=== PATIENT | male | born 1960 | race African-American/Black ===

== ENCOUNTER 2016-06-02 08:29 | Emergency (ER) | payer OTHER ==
[2016-06-02 08:46] VITALS: BP 144/91
[2016-06-02] MEDS ORDERED: Albuterol 2.5 MG/3 ML NEB.SOL* (0.083%) INH ONE (09:12)
--- NOTE | 2016-06-02 09:15 | UC ---
Respiratory Complaint HPI - HPI Summary HPI Summary: hx of COPD, presents with fatique, PATINO, right sided ear and sinus pain bodyaches , chills and cough for 5 days. - History of Current Complaint Chief Complaint: UCRespiratory Stated Complaint: COUGH HEAD CONGESTION Time Seen by Provider: 06/02/16 09:07 Hx Obtained From: Patient Onset/Duration: Sudden Onset, Lasting Days Timing: Constant Severity Initially: Moderate Severity Currently: Severe Pain Intensity: 7 Pain Scale Used: 0-10 Numeric Character: Cough: Productive Aggravating Factors: Exertion, Deep Breaths, Recumbent Position Associated Signs And Symptoms: Positive: Fever, Chills, Wheezing, Nasal Congestion - Risk Factors Pulmonary Embolism Risk Factors: Negative - Allergies/Home Medications Allergies/Adverse Reactions: Allergies Allergy/AdvReac Type Severity Reaction Status Date / Time Aspirin Allergy See Comment Verified 06/02/16 08:35 Home Medications: Home Medications Albuterol HFA INHALER* [Ventolin HFA Inhaler*] 2 puff QID PRN 06/02/16 [History Confirmed 06/02/16] Allopurinol TAB* [Zyloprim TAB*] 1 tab QPM 06/02/16 [History Confirmed 06/02/16] Atenolol TAB* [Tenormin TAB* 50 MG] 1 tab QPM 06/02/16 [History Confirmed ] Budesonide/Formote 160/4.5(NF) [Symbicort 160/4.5 (NF)] 2 puff BID 06/02/16 [ History Confirmed 06/02/16] Febuxostat(NF) [Uloric(NF)] 1 tab QPM 06/02/16 [History Confirmed 06/02/16] Ibuprofen TAB* [Motrin TAB* 800 MG] 1 tab PRN 06/02/16 [History] LORazepam TAB(*) [Ativan TAB(*)] 2 mg PRN 06/02/16 [History] Lisinopril TAB* [Prinivil TAB 10 MG*] 20 mg QPM 06/02/16 [History Confirmed ] Omeprazole CAP* [Prilosec CAP* 20 MG] 40 mg QPM 06/02/16 [History Confirmed ] amLODIPine TAB* [Norvasc TAB*] 1 tab QPM 06/02/16 [History Confirmed 06/02/16] PMH/Surg Hx/FS Hx/Imm Hx Previously Healthy: Yes Endocrine History Of: Denies: Diabetes, Thyroid Disease Cardiovascular History Of: Reports: Hypertension - ON MEDS Denies: Cardiac Disorders, Pacemaker/ICD Respiratory History Of: Reports: COPD Denies: Asthma GI/ History Of: Denies: Ulcer, Renal Disease - Surgical History Surgical History: Yes Surgery Procedure, Year, and Place: Lymph node removed from chest; hernia repair. May 2016-2 cysts removed- 1 removed from chin and 1 removed from back - Family History Known Family History: Negative: Cardiac Disease, Hypertension - Social History Alcohol Use: None Substance Use Type: None Substance Use Comment - Amount & Last Used: Pt currently in substance abuse program- denies any substance use Smoking Status (MU): Current Some Day Smoker Type: Cigarettes Amount Used/How Often: 5-6 daily Have You Smoked in the Last Year: Yes - Immunization History Most Recent Influenza Vaccination: None Most Recent Tetanus Shot: 2012 Review of Systems Constitutional: Fever, Chills, Fatigue Skin: Negative Eyes: Negative ENT: Sore Throat, Ear Ache, Nasal Discharge Respiratory: Cough Cardiovascular: Negative Gastrointestinal: Negative Genitourinary: Negative Motor: Negative Neurovascular: Negative Musculoskeletal: Myalgia Neurological: Headache Psychological: Negative All Other Systems Reviewed And Are Negative: Yes Physical Exam Triage Information Reviewed: Yes Appearance: Well-Nourished, Ill-Appearing, Pain Distress Vital Signs: Initial Vital Signs Temp 99 F 06/02/16 08:37 Pulse 97 06/02/16 08:37 Resp 18 06/02/16 08:37 BP 144/91 06/02/16 08:37 Pulse Ox 99 06/02/16 08:37 Vital Signs Reviewed: Yes Eye Exam: Normal Eyes: Positive: Conjunctiva Clear ENT: Positive: Hearing grossly normal, Pharyngeal erythema, Nasal drainage, TM red Dental Exam: Normal Neck exam: Normal Neck: Positive: Supple, Nontender, No Lymphadenopathy Respiratory Exam: Normal Respiratory: Positive: Chest non-tender, No respiratory distress, No accessory muscle use, Wheezing, Inspiration Cardiovascular Exam: Normal Cardiovascular: Positive: RRR, No Murmur, Pulses Normal Abdominal Exam: Normal Abdomen Description: Positive: Nontender, No Organomegaly, Soft Bowel Sounds: Positive: Present Musculoskeletal Exam: Normal Musculoskeletal: Positive: Strength Intact, ROM Intact, No Edema Neurological Exam: Normal Neurological: Positive: Alert, Muscle Tone Normal Psychological Exam: Normal Skin Exam: Normal UC Diagnostic Evaluation - Laboratory O2 Sat by Pulse Oximetry: 99 Respiratory Course/Dx - Course Course Of Treatment: hx obtained, exam performed, meds reviewed, rapid flu obtained, albuterol neb administered. - Differential Dx/Diagnosis Differential Diagnosis/HQI/PQRI: Bronchitis, Influenza, Laryngitis, MRSA, Sinusitis Provider Diagnoses: sinusitis, fever, copd Discharge - Discharge Plan Condition: Stable Disposition: HOME Prescriptions: Amoxicillin/Clavulanate TAB* [Augmentin TAB 875*] 875 mg PO BID #20 tab predniSONE TAB* [Deltasone TAB*] 40 mg PO DAILY #10 tab Patient Education Materials: Sinusitis (ED) Additional Instructions: take the medication as prescribed. Follow up with any increase in respiratory difficulty.
== END 2016-06-02 10:08 | disposition home or self-care (01) ==
LOC: UCEAST 08:29
DX: J32.9 Chronic sinusitis, unspecified (principal); R50.9 Fever, unspecified; J44.9 Chronic obstructive pulmonary disease, unspecified; I10 Essential (primary) hypertension; Z88.6 Allergy status to analgesic agent; Z72.0 Tobacco use
CPT/HCPCS: 87502; 99212; G0463

== ENCOUNTER 2017-04-09 10:25 | Inpatient (IN) | payer OTHER ==
--- NOTE | 2017-03-31 10:26 | HP ---
HISTORY AND PHYSICAL: DATE OF SURGERY: 04/09/17 DATE OF OFFICE VISIT: 03/27/17 SURGEON: Isha Rojas MD * (DICTATED BY MATTHEW DE SANTIAGO) PROCEDURE: Right total hip arthroplasty. CHIEF COMPLAINT: Right hip pain. HISTORY OF PRESENT ILLNESS: Mr. Humphries is a 56-year-old gentleman with complaints of right hip pain secondary to end-stage osteoarthritis. He has failed conservative management and elected to proceed with a right total hip arthroplasty. PAST MEDICAL HISTORY: COPD, hypertension, GERD, and chronic neck and low back pain. PAST SURGICAL HISTORY: Left inguinal hernia repair and a lymph node removal from his chest. CURRENT MEDICATIONS: 1. Oxycodone 10 mg 1 tablet every 12 hours as needed. 2. Zonisamide 25 mg one to four capsules q.h.s. 3. Tylenol Extra Strength. 4. Verapamil 240 mg every day. 5. Ventolin inhaler. 6. Uloric 40 mg daily. 7. Omeprazole 40 mg daily. 8. Allopurinol 100 mg daily. 9. Symbicort. 10. Lisinopril 20 mg daily. ALLERGIES: ASPIRIN, causing nosebleeds. FAMILY HISTORY: Seizures. SOCIAL HISTORY: He is a 56-year-old gentleman who lives with his . He smokes approximately a half a pack a day. He denies use of drugs, uses occasional alcohol. REVIEW OF SYSTEMS: A complete 14-point review of systems was reviewed with the patient. It is positive for GERD and COPD. He denies history of DVT, PE, hepatitis C, HIV, MRSA or anesthesia problems. PHYSICAL EXAMINATION GENERAL: Well-developed, well-nourished, in no acute distress. VITAL SIGNS: He stands 5 feet 9 inches tall, he is 150 pounds, blood pressure 124/84, heart rate 96. HEENT: Normocephalic, atraumatic. NECK: Supple. No palpable lymph nodes. PULMONARY: The lungs are clear to auscultation bilaterally. CARDIO: Regular rate and rhythm. ABDOMEN: Soft, nontender, nondistended. NEUROLOGIC: Alert and oriented x3. Cranial nerves II through XII are intact. MUSCULOSKELETAL: Right lower extremity, skin is intact. There are no open wounds or abrasions. Decreased internal and external rotation of the right hip. Walks with an antalgic type gait; 2+ dorsalis pedis pulses. He has intact sensation in the lower extremities. Muscle group strengths are intact 5/ 5. ASSESSMENT AND PLAN: Mr. Humphries is a 56-year-old gentleman with complaints of right hip pain secondary to end-stage osteoarthritis. He has failed conservative management and elected to proceed with a right total hip arthroplasty, which is scheduled for 04/09/[address] Rojas discussed the risks and benefits of the surgery at today's visit and all of his questions were answered. He will follow up with Dr. Rojas 2 weeks after the surgery. MATTHEW DE SANTIAGO [id number]/[facility] #: [id number] MIGUEL
[~2017-04-09 10:25] MED LIST: DiMENhydriNATE IV* 50 MG/ML VIAL IV PUSH PRN; Famotidine IV* 10 MG/ML 2 ML (20 mg) IV ONE; Naloxone* 0.4 MG/ML 1 ML VIAL IV PRN; PROCHLORPERAZINE INJ 5 MG/ML 2 ML VIAL IV PRN; Scopolamine 1.5 mg* PATCH TRANSDERM PRN
[2017-04-09] MEDS ORDERED: Famotidine IV* 10 MG/ML 2 ML (20 mg) ONE (10:29)
[2017-04-09] MEDS ORDERED: Buffered Lidocaine 0.9% SYRIN* 5 ML/SYR SYRINGE ONE (10:30)
[2017-04-09] MEDS ORDERED: ceFAZolin 2 GM PREMIX (*) 2 GM/50 ML BAG IVPB ONE (10:30)
--- OUTSIDE RECORDS SUMMARY | 2017-04-09 10:31 | XMS REPORT ---
:1960 External Reference #:[id number] Author Organization [facility] Address [address] [address] Phone [phone] Care Team Providers Name Role Phone Cory Alvarez MD Primary Care Physician Unavailable Payers Type Date Identification Numbers Payment Provider Subscriber Medicaid Effective: 2014 Policy Number: [id number] Medicaid Silvino Humphries Expires: 2015 Group Name: 1 1 [address] PayID: [id number] [place] [address] Commercial Expires: 2014 Policy Number: Total Care/Cristina FHP Silvino Humphries [id number] PayID: [id number] [address] [address] [place] [address] Commercial Effective: 2015 Policy Number: Total Care/Cristina MNG Silvino Humphries [id number] [facility] Group Name: [id number] [address] [address] PayID: [id number] [place] [address] Problems Date Description Provider Status Onset: 06/22/2014 Neck pain Kacie Tineo M.D. Active Onset: 01/12/2015 Lumbar spondylosis Isidro Chaudhry M.D. Active Onset: 09/27/2015 Carpal tunnel syndrome of right Cory Alvarez M.D. Active wrist Onset: 09/27/2015 Essential hypertension Cory Alvarez M.D. Active Onset: 09/27/2015 Gout Cory Alavrez M.D. Active Onset: 09/27/2015 Chronic obstructive lung disease Cory Alvarez M.D. Active Onset: 03/21/2016 Gastroesophageal reflux disease Cory Alvarez M.D. Active Onset: 08/19/2016 Migraine without aura, not Cory Alvarez M.D. Active refractory Onset: 12/19/2016 Strain of muscle, fascia and tendon Grady Ryan M.D. Active of lower back, subs Onset: 01/08/2017 Polyneuropathy Cory Alvarez M.D. Active Onset: 01/12/2015 Cervical spondylosis without Isidro Chaudhry M.D. Resolved myelopathy Resolved: 05/20/2016 Onset: 01/12/2015 Localized, primary osteoarthritis Isidro Chaudhry M.D. Resolved of the pelvic region and thigh Resolved: 05/20/2016 Onset: 09/27/2015 Thoracic and lumbosacral neuritis Cory Alvarez M.D. Resolved Resolved: 05/20/2016 Onset: 09/27/2015 Screening for malignant neoplasm of Cory Alvarez M.D. Resolved prostate Resolved: 05/20/2016 Onset: 03/12/2016 Low back pain Grady Ryan M.D. Resolved Resolved: 05/20/2016 Onset: 03/21/2016 Shoulder joint pain Cory Alvarez M.D. Resolved Resolved: 05/20/2016 Onset: 05/12/2016 Displacement of lumbar intervertebral Grady Ryan M.D. Resolved disc without myelopathy Resolved: 05/20/2016 Onset: 05/20/2016 Brachial neuritis Cory Alvarez M.D. 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 ambulation . Raised Toilet 03/31 Active Misc use as Z01.818 directed Ranjit Alvarez Oxycodone HCL 02/12 Active Tablets 10mg 30tab 1 tab 12h M25.551 s as needed Ranjit Alvarez Zonisamide 02/05 Active Capsules 25mg 120ca 1-4 caps G44.52 Cristy M. ps by mouth Stackman, every M.D. night as directed Acetaminophen 10/28 Active Tablets 500mg 180ta 2 tab 3 G43.009 Extra bs times Pachika daily as , Janae.DPromise needed Verapamil HCL ER 10/28 Active Caps ER 240mg 30cap Take One 24HR s Capsule By Kim Hoffman M.D. Every Day Ventolin HFA 04/23 Active Aerosol 108(90Bas 16gm 2 puffs by e) mouth four Jiaikara mcg/Act times a MPromiseDPromise day as needed Uloric 04/11 Active Tablets 40mg 90tab 1 by mouth s every day Ranjit Alvarez Omeprazole 03/[address] 40mg 30cap Take One K21.9 s Capsule By Kim Hoffman M.D. Every Morning One Hour Before Eating Allopurinol 02/25 Active Tablets 100mg 30tab Take One s Tablet By Kim Hoffman M.D. Every Day Symbicort 09/26 Active Aerosol 160-4.5mc 30.6g 2 puff g/Act m twice a Kim sanford M.D. Lisinopril Active Tablets 20mg 30tab Take One I10 /0000 s Tablet By Kim Hoffman M.D. Every Day Verapamil HCL ER 10/09 Hx Caps ER 120mg 30cap 1 by mouth G43.009 24HR s every day Kim Herndon M.D. 10/28 Amitriptyline HCL 09/04 Hx Tablets 25mg 30tab 1 by mouth G43.009 s every Kim - night at Ranjit 10/09 bedtime Sumatriptan 08/19 Hx Tablets 100mg 9tabs use at G43.009 [place] Succinate onset of Pachikara - head , M.D. 12/02 ache,august repeat after 2h as needed Metoprolol 08/19 Hx Tablets 25mg 60tab 1 by mouth G43.009 [place] Tartrate /2016 s twice a Pachikara - day , M.D. 10/09 Amoxicillin/Clavu 08/19 Hx Tablets 875-125mg 20tab 1 by mouth J06.9 [place] lanate Potassium /2016 s twice a Pachikara - day , M.D. 09/04 Prednisone 08/19 Hx Tablets 10mg 30tab 5tabx J06.9 Cory /2016 s 2days,4 Pachikara - [id number] , M.D. 09/04 [id number] /2017 ,[id number] s,1tabx . Loratadine 07/14 Hx Tablets 10mg 14tab 1 by mouth J01.90 Sherry s every day Gaby, - as needed M.D. 02/12 for nasal /2017 congestion Ativan 03/12 Hx Tablets 2mg 2tabs take one M54.5 tablet by Kim - mouth 30 , M.D. before mri, may repeat at the time of mri. Atenolol 11/20 Hx Tablets 50mg 30tab 1 by mouth s every day Kim - , M.D. 09/04 Proair HFA 11/12 Hx Aerosol 108(90Bas 8.5un 2 puffs by e) its mouth Pachikara - mcg/Act every 4 , M.D. /18 hours needed Vistaril 10/16 Hx Capsules 50mg 4caps 2 tabs po Jung /2015 30 minutes Wolof, - before CT, HYPERBARIC TECH 11/13 repeat in 30 minutes in ineffectiv e Wrist Brace 09/26 Hx Misc 1unit apply as G56.01 Cory Deluxe/Right/Smal s directed Pachika l/Medium - , M.D. 03/26 Hydrochlorothiazi Hx Tablets 12.5mg 90tab 1 by mouth I10 [place] de /0000 s every day Kim (pt Ranjit dorsey taking) Atenolol 00 Hx Tablets 25mg 1 qd I10 Unknown /0000 - 11/20 Aspirin - 00 Hx Tablets 81mg 1 by mouth Unknown Currently Not /0000 every day Taking - 01/12 Cyclobenzaprine Hx Tablets 10mg one by Unknown HCL /0000 mouth - every day 09/26 Fluticasone Hx Suspension 50mcg/Act 2 sprays Unknown Propionate /0000 each - nostril 09/26 Ibuprofen Hx Tablets 800mg 90tab 1 tab by M47.812 Betty /0000 s mouth Varn, - every 8 N.P. 10/28 hours needed Diphenhydramine Hx Capsules 25mg take 1 - 2 Unknown HCL /0000 tablets by - mouth at 09/26 bedtime needed. Ipratropium Hx Solution 0.06% 2 sprays Unknown [place] /0000 in each - nostril 09/26- times/day for relief of cold symptoms (limit 4 days) Ketoconazole Hx Cream 2% apply thin Unknown /0000 film twice - daily 09/26 Proair HFA Hx Aerosol 108(90Bas 2 puffs by J44.9 Unknown /0000 e) mouth - mcg/Act every 4 08/09 hours needed Prednisone 00/ Hx Tablets 10mg 2 qd Unknown /0000 - 09/26 Uloric Hx Tablets 40mg 90tab 1 by mouth M10.9 [place] /0000 s every day Kim Herndon M.D. 02/25 Amlodipine 00 Hx Tablets 5mg 30tab Take One I10 [place] Besylate /0000 s Tablet By Kim - Ranjit Hoffman 10/28 Every /2016 Immunizations CPT Code Status Date Vaccine Reaction Lot # [id number] Given 09/04/2016 Pneumonia Vaccine no immediate reaction, pt [id number] tolerated injection - pw Vital Signs Date Vital Result Comment 03/31/2017 Weight 149.50 lb Heart Rate 92 /min BP Systolic Sitting 132 mmHg BP Diastolic Sitting 80 mmHg Body Temperature 97.7 F O2 % BldC Oximetry 98 % 03/27/2017 Height 69 inches 5'9" Weight 150.00 lb Heart Rate 96 /min BP Systolic 124 mmHg BP Diastolic 84 mmHg Body Temperature 98.3 F BMI (Body Mass Index) 22.1 kg/m2 02/23/2017 Height 69 inches 5'9" Weight 155.00 lb per pt Heart Rate 90 /min reg BP Systolic Sitting 130 mmHg Lue, reg cuff BP Diastolic Sitting 96 mmHg Lue, reg cuff Respiratory Rate 16 /min BMI (Body Mass Index) 22.9 kg/m2 02/12/2017 Weight 153.00 lb Heart Rate 93 /min BP Systolic Sitting 150 mmHg BP Diastolic Sitting 90 mmHg Body Temperature 97.2 F O2 % BldC Oximetry 97 % 02/05/2017 Height 69 inches 5'9" Weight 150.00 lb Heart Rate 108 /min BP Systolic 122 mmHg BP Diastolic 96 mmHg Respiratory Rate 16 /min BMI (Body Mass Index) 22.1 kg/m2 01/08/2017 Height 69 inches 5'9" Weight 150.25 lb Heart Rate 94 /min BP Systolic 124 mmHg BP Diastolic 78 mmHg Body Temperature 98.3 F O2 % BldC Oximetry 97 % BMI (Body Mass Index) 22.2 kg/m2 12/19/2016 Height 69 inches 5'9" Weight 155.00 lb Heart Rate 90 /min BP Systolic Sitting 138 mmHg BP Diastolic Sitting 88 mmHg Pain Level 5 BMI (Body Mass Index) 22.9 kg/m2 12/18/2016 Height 69 inches 5'9" Weight 155.38 lb Heart Rate 101 /min BP Systolic 150 mmHg BP Diastolic 88 mmHg Body Temperature 97.7 F O2 % BldC Oximetry 98 % BMI (Body Mass Index) 22.9 kg/m2 12/02/2016 Height 69 inches 5'9" Weight 155.12 lb Heart Rate 91 /min BP Systolic 130 mmHg BP Diastolic 78 mmHg Body Temperature 97.5 F O2 % BldC Oximetry 98 % BMI (Body Mass Index) 22.9 kg/m2 10/28/2016 Height 69 inches 5'9" Weight 153.25 lb Heart Rate 92 /min BP Systolic 146 mmHg BP Diastolic 88 mmHg Body Temperature 97.2 F O2 % BldC Oximetry 96 % BMI (Body Mass Index) 22.6 kg/m2 10/09/2016 Weight 150.38 lb Heart Rate 89 /min BP Systolic 138 mmHg BP Diastolic 76 mmHg Body Temperature 97.9 F O2 % BldC Oximetry 98 % 09/10/2016 Weight 151.00 lb Heart Rate 62 /min BP Systolic Sitting 132 mmHg BP Diastolic Sitting 90 mmHg Pain Level 8 L ribcage O2 % BldC Oximetry 99 % 09/04/2016 Weight 148.50 lb Heart Rate 68 /min BP Systolic 134 mmHg BP Diastolic 76 mmHg Body Temperature 96.7 F O2 % BldC Oximetry 99 % 08/19/2016 Weight 151.00 lb Heart Rate 68 /min BP Systolic Sitting 142 mmHg BP Diastolic Sitting 90 mmHg Body Temperature 97.2 F O2 % BldC Oximetry 99 % 07/14/2016 Weight 147.00 lb Heart Rate 72 /min BP Systolic Sitting 132 mmHg BP Diastolic Sitting 84 mmHg Respiratory Rate 15 /min Body Temperature 98.3 F O2 % BldC Oximetry 98 % 07/11/2016 Weight 145.25 lb Heart Rate 85 /min BP Systolic Sitting 142 mmHg BP Diastolic Sitting 96 mmHg Body Temperature 98.7 F O2 % BldC Oximetry 97 % 05/20/2016 Weight 147.25 lb Heart Rate 90 /min BP Systolic Sitting 134 mmHg BP Diastolic Sitting 78 mmHg Body Temperature 97.6 F O2 % BldC Oximetry 96 % 05/12/2016 Height 69 inches 5'9" Weight 153.00 lb Heart Rate 72 /min BP Systolic Sitting 160 mmHg BP Diastolic Sitting 90 mmHg Pain Level 6 BMI (Body Mass Index) 22.6 kg/m2 05/06/2016 Heart Rate 72 /min BP Systolic 130 mmHg BP Diastolic 84 mmHg Respiratory Rate 18 /min Body Temperature 98.0 F 04/16/2016 Height 69 inches 5'9" Weight 153.00 lb Heart Rate 84 /min BP Systolic 130 mmHg BP Diastolic 84 mmHg Respiratory Rate 18 /min Body Temperature 98.6 F BMI (Body Mass Index) 22.6 kg/m2 03/21/2016 Weight 149.50 lb Heart Rate 100 /min BP Systolic Sitting 160 mmHg BP Diastolic Sitting 100 mmHg Body Temperature 97.5 F O2 % BldC Oximetry 98 % 03/12/2016 Height 69 inches 5'9" Weight 160.00 lb Heart Rate 76 /min BP Systolic Sitting 160 mmHg BP Diastolic Sitting 98 mmHg Pain Level 9 BMI (Body Mass Index) 23.6 kg/m2 02/22/2016 Weight 154.50 lb Heart Rate 76 /min BP Systolic Sitting 130 mmHg BP Diastolic Sitting 88 mmHg Body Temperature 97.4 F O2 % BldC Oximetry 98 % 11/14/2015 Height 68.25 inches 5'8.25" Weight 148.38 lb Heart Rate 96 /min BP Systolic Sitting 146 mmHg BP Diastolic Sitting 94 mmHg Body Temperature 97.7 F O2 % BldC Oximetry 96 % BMI (Body Mass Index) 22.4 kg/m2 10/19/2015 Height 68.25 inches 5'8.25" Weight 153.00 lb Heart Rate 87 /min BP Systolic 130 mmHg BP Diastolic 78 mmHg BMI (Body Mass Index) 23.1 kg/m2 10/15/2015 Height 68 inches 5'8" Weight 150.50 lb Heart Rate 88 /min BP Systolic Sitting 124 mmHg BP Diastolic Sitting 80 mmHg Body Temperature 97.4 F O2 % BldC Oximetry 98 % BMI (Body Mass Index) 22.9 kg/m2 09/27/2015 Height 68 inches 5'8" Weight 149.00 lb Heart Rate 86 /min BP Systolic Sitting 156 mmHg BP Diastolic Sitting 104 mmHg Body Temperature 97.9 F O2 % BldC Oximetry 99 % BMI (Body Mass Index) 22.7 kg/m2 01/12/2015 Height 69 inches 5'9" Weight 163.00 lb Heart Rate 76 /min BP Systolic Sitting 122 mmHg BP Diastolic Sitting 80 mmHg Pain Level 7 back BMI (Body Mass Index) 24.1 kg/m2 12/28/2014 Height 69 inches 5'9" Weight 167.00 lb Pain Level 6 BMI (Body Mass Index) 24.7 kg/m2 11/15/2014 Height 69 inches 5'9" Weight 167.00 lb Heart Rate 80 /min BP Systolic 148 mmHg BP Diastolic 90 mmHg BMI (Body Mass Index) 24.7 kg/m2 08/17/2014 Height 69 inches 5'9" Weight 166.00 lb Heart Rate 93 /min BP Systolic 102 mmHg BP Diastolic 71 mmHg Pain Level 8 BMI (Body Mass Index) 24.5 kg/m2 07/17/2014 Height 69 inches 5'9" Weight 173.00 lb Heart Rate 72 /min BP Systolic 116 mmHg BP Diastolic 83 mmHg BMI (Body Mass Index) 25.5 kg/m2 06/22/2014 Height 69 inches 5'9" Weight 174.00 lb Heart Rate 80 /min BP Systolic Sitting 138 mmHg BP Diastolic Sitting 84 mmHg Respiratory Rate 16 /min BMI (Body Mass Index) 25.7 kg/m2 05/19/2014 Height 69 inches 5'9" Weight 172.00 lb Heart Rate 76 /min BP Systolic Sitting 122 mmHg BP Diastolic Sitting 80 mmHg Pain Level 6 back/neck/l shoulder BMI (Body Mass Index) 25.4 kg/m2 Results Test Date Test Result H/L Range Note CBC No Diff 03/27/2017 White Blood Count 4.3 10^3/uL 3.5-10.8 Red Blood Count 4.82 10^6/uL 4.0-5.4 Hemoglobin 14.8 g/dL 14.0-18.0 Hematocrit 43 % 42-52 Mean Corpuscular Volume 90 fL 80-94 Mean Corpuscular Hemoglobin 31 pg 27-31 Mean Corpuscular HGB Conc 34 g/dL 31-36 Red Cell Distribution Width 14 % 10.5-15 Platelet Count 258 10^3/uL 150-450 Mean Platelet Volume 7 um3 Low 7.4-10.4 Type & Screen 03/27/2017 Patient Blood Type O Positive Antibody Screen NEGATIVE Inr/Protime 03/27/2017 Inr 0.99 0.77-1.02 1 Laboratory test finding 03/27/2017 Partial Thrombo Time 42.9 seconds High 26.0-36.3 PTT Comp Metabolic Panel 03/27/2017 Sodium 132 mmol/L Low 133-145 Potassium 4.5 mmol/L 3.5-5.0 Chloride 96 mmol/L Low 101-111 Co2 Carbon Dioxide 26 mmol/L 22-32 Anion Gap 10 mmol/L 2-11 Glucose 79 mg/dL 70-100 Blood Urea Nitrogen 8 mg/dL 6-24 Creatinine 0.70 mg/dL 0.67-1.17 BUN/Creatinine Ratio 11.4 8-20 Calcium 9.8 mg/dL 8.6-10.3 Total Protein 7.7 g/dL 6.4-8.9 Albumin 4.0 g/dL 3.2-5.2 Globulin 3.7 g/dL 2-4 Albumin/Globulin Ratio 1.1 1-3 Total Bilirubin 0.50 mg/dL 0.2-1.0 Alkaline Phosphatase 118 U/L High 34-104 Alt 11 U/L 7-52 Ast 20 U/L 13-39 Egfr Non- 116.7 >60 Egfr 150.0 >60 2 Laboratory test finding 03/27/2017 TSH (Thyroid Stim Horm) 1.49 mcIU/mL 0.34-5.60 Comp Metabolic Panel 02/03/2017 Sodium 133 mmol/L 133-145 Potassium 4.4 mmol/L 3.5-5.0 Chloride 99 mmol/L Low 101-111 Co2 Carbon Dioxide 26 mmol/L 22-32 Anion Gap 8 mmol/L 2-11 Glucose 105 mg/dL High 70-100 Blood Urea Nitrogen 8 mg/dL 6-24 Creatinine 0.85 mg/dL 0.67-1.17 BUN/Creatinine Ratio 9.4 8-20 Calcium 10.0 mg/dL 8.6-10.3 Total Protein 8.0 g/dL 6.4-8.9 Albumin 4.3 g/dL 3.2-5.2 Globulin 3.7 g/dL 2-4 Albumin/Globulin Ratio 1.2 1-3 Total Bilirubin 0.40 mg/dL 0.2-1.0 Alkaline Phosphatase 130 U/L High 34-104 Alt 12 U/L 7-52 Ast 23 U/L 13-39 Egfr Non- 93.2 >60 Egfr 119.9 >60 3 CBC Auto Diff 02/03/2017 White Blood Count 5.6 10^3/uL 3.5-10.8 Red Blood Count 5.02 10^6/uL 4.0-5.4 Hemoglobin 15.6 g/dL 14.0-18.0 Hematocrit 46 % 42-52 Mean Corpuscular Volume 91 fL 80-94 Mean Corpuscular Hemoglobin 31 pg 27-31 Mean Corpuscular HGB Conc 34 g/dL 31-36 Red Cell Distribution Width 14 % 10.5-15 Platelet Count 259 10^3/uL 150-450 Mean Platelet Volume 8 um3 7.4-10.4 Abs Neutrophils 3.0 10^3/uL 1.5-7.7 Abs Lymphocytes 1.5 10^3/uL 1.0-4.8 Abs Monocytes 0.9 10^3/uL High 0-0.8 Abs Eosinophils 0.1 10^3/uL 0-0.6 Abs Basophils 0.1 10^3/uL 0-0.2 Abs Nucleated RBC 0 10^3/uL Granulocyte % 52.8 % 38-83 Lymphocyte % 27.7 % 25-47 Monocyte % 16.9 % High 1-9 Eosinophil % 1.2 % 0-6 Basophil % 1.4 % 0-2 Nucleated Red Blood Cells % 0.1 Laboratory test finding 02/03/2017 TSH (Thyroid Stim 0.92 mcIU/mL 0.34- 5.60 Horm) Vitamin B12 And Folate 01/06/2017 Vitamin B12 346 pg/mL 180-914 4 Serum Folic Acid (Folate) 15.62 ng/mL >3.99 Rapid Influenza A & B 06/02/2016 Influenza A Molecular NEGATIVE Negative 5 Molecular Influenza B Molecular NEGATIVE Negative Basic Metabolic Panel 11/20/2015 Sodium 130 mmol/L Low 133-145 Potassium 4.2 mmol/L 3.5-5.0 Chloride 93 mmol/L Low 101-111 Co2 Carbon Dioxide 27 mmol/L 22-32 Anion Gap 10 mmol/L 2-11 Glucose 86 mg/dL 70-100 Blood Urea Nitrogen 9 mg/dL 6-24 Creatinine 0.85 mg/dL 0.67-1.17 BUN/Creatinine Ratio 10.6 8-20 Calcium 10.0 mg/dL 8.6-10.3 Egfr Non- 93.6 >60 Egfr 120.4 >60 6 Laboratory test finding 11/02/2015 Uric Acid 4.4 mg/dL 4.4-7.6 Comp Metabolic Panel 11/02/2015 Sodium 129 mmol/L Low 133-145 Potassium 4.5 mmol/L 3.5-5.0 Chloride 97 mmol/L Low 101-111 Co2 Carbon Dioxide 23 mmol/L 22-32 Anion Gap 9 mmol/L 2-11 Glucose 73 mg/dL 70-100 Blood Urea Nitrogen 6 mg/dL 6-24 Creatinine 0.74 mg/dL 0.67-1.17 BUN/Creatinine Ratio 8.1 8-20 Calcium 9.1 mg/dL 8.6-10.3 Total Protein 7.6 g/dL 6.4-8.9 Albumin 4.2 g/dL 3.2-5.2 Globulin 3.4 g/dL 2-4 Albumin/Globulin Ratio 1.2 1-3 Total Bilirubin 0.30 mg/dL 0.2-1.0 Alkaline Phosphatase 121 U/L High 34-104 Alt 31 U/L 7-52 Ast 44 U/L High 13-39 Egfr Non- 109.8 >60 Egfr 141.2 >60 7 Lipid Profile (Trig/Chol/HDL) 11/02/2015 Triglycerides 58 mg/dL 8 Cholesterol 173 mg/dL 9 HDL Cholesterol 67.3 mg/dL 10 LDL Cholesterol 94 mg/dL 11 Laboratory test finding 11/02/2015 PSA Screening 1.322 ng/mL 0-4.000 12 Stool For Blood 10/26/2015 Miscellaneous Lab negative X 3 1 Please note the change in INR reference range effective 17. 2 Because ethnic data is not always readily available, this report includes an eGFR for both -Americans and non- Americans. The National Kidney Disease Education Program (NKDEP) does not endorse the use of the MDRD equation for patients that are not between the ages of 18 and 70, are , have extremes of body size, muscle mass, or nutritional status, or are non- or non-. According to the National Kidney Foundation, irrespective of diagnosis, the stage of the disease is based on the level of kidney function: Stage Description GFR(mL/min/1.73 m(2)) 1 Kidney damage with normal or decreased GFR 90 2 Kidney damage with mild decrease in GFR 60-89 3 Moderate decrease in GFR 30-59 4 Severe decrease in GFR 15-29 5 Kidney failure <15 (or dialysis) 3 Because ethnic data is not always readily available, this report includes an eGFR for both -Americans and non- Americans. The National Kidney Disease Education Program (NKDEP) does not endorse the use of the MDRD equation for patients that are not between the ages of 18 and 70, are , have extremes of body size, muscle mass, or nutritional status, or are non- or non-. According to the National Kidney Foundation, irrespective of diagnosis, the stage of the disease is based on the level of kidney function: Stage Description GFR(mL/min/1.73 m(2)) 1 Kidney damage with normal or decreased GFR 90 2 Kidney damage with mild decrease in GFR 60-89 3 Moderate decrease in GFR 30-59 4 Severe decrease in GFR 15-29 5 Kidney failure <15 (or dialysis) 4 Normal Range 180 to 914 Indeterminate Range 145 to 180 Deficient Range <145 5 Harbour Master: [id number] BLAKE BOYER 6 Because ethnic data is not always readily available, this report includes an eGFR for both -Americans and non- Americans. The National Kidney Disease Education Program (NKDEP) does not endorse the use of the MDRD equation for patients that are not between the ages of 18 and 70, are , have extremes of body size, muscle mass, or nutritional status, or are non- or non-. According to the National Kidney Foundation, irrespective of diagnosis, the stage of the disease is based on the level of kidney function: Stage Description GFR(mL/min/1.73 m(2)) 1 Kidney damage with normal or decreased GFR 90 2 Kidney damage with mild decrease in GFR 60-89 3 Moderate decrease in GFR 30-59 4 Severe decrease in GFR 15-29 5 Kidney failure <15 (or dialysis) 7 Because ethnic data is not always readily available, this report includes an eGFR for both -Americans and non- Americans. The National Kidney Disease Education Program (NKDEP) does not endorse the use of the MDRD equation for patients that are not between the ages of 18 and 70, are , have extremes of body size, muscle mass, or nutritional status, or are non- or non-. According to the National Kidney Foundation, irrespective of diagnosis, the stage of the disease is based on the level of kidney function: Stage Description GFR(mL/min/1.73 m(2)) 1 Kidney damage with normal or decreased GFR 90 2 Kidney damage with mild decrease in GFR 60-89 3 Moderate decrease in GFR 30-59 4 Severe decrease in GFR 15-29 5 Kidney failure <15 (or dialysis) 8 Desirable <150 Borderline high 150-199 High 200-499 Very High >500 9 Desirable <200 Borderline high 200-239 High >239 10 Low <40 Desirable: 40-60 High: >60 11 Desirable: <100 mg/dL Near Optimal: 100-129 mg/dL Borderline High: 130-159 mg/dL High: 160-189 mg/dL Very High: >189 mg/dL 12 Serum levels of PSA measured using the newScale DXI Hybritech immunoassay should not be interpreted as absolute evidence of the presence or absence of disease. The PSA value should be used in conjunction with other pertinent clinical diagnostic procedures. The values obtained with different assay methods or kits cannot be used interchangeably. Procedures Date CPT Code Description Status 02/03/2017 39617 Nerve Conduction 07-08 Studies Completed 02/03/2017 25794 Needle Electromyography Each Extremity W/Related Completed Paraspinal Areas 05/06/2016 86606 Excision Benign Lesion Incl Diameter 1.1 - 2.0 CM Completed Scalp,Neck,Hand 05/06/2016 11202 Excise Benign Lesion 2.1-3CM Trunk/Arm/Leg Completed 11/20/2015 22503 Plethysmography Determination Lung Volumes & Per Completed Airway Resist 11/20/2015 05546 Pulmonary Function><Bronchodil Completed 06/22/2014 68446 Nerve Conduction 09-10 Studies Completed 06/22/2014 38273 Needle Electromyography Complete, Five Or More Muscles Completed Studied Encounters Type Date Location Provider CPT E/M Dx Office Visit 02/23/2017 Orthopedic Services Isha Rojas M.D. 26366 M25.551 10:45a Of [place].M.Jon[place] M16.11 Office Visit 02/12/2017 1:00p [facility] Internal Cory Alvarez, 40956 M25.551 Medicine - [place] M51.26 J44.9 I10 Office Visit 02/05/2017 10:15a [facility] Cristy Hat[place], 42026 G44.52 Services [facility] [place] Office Visit 01/08/2017 11:00a [facility] Internal Medicine Cory Alvarez 03999 M51.26 - [place] G56.00 G62.9 Office Visit 12/19/2016 9:50a Neurosurgery Services Grady Ryan 77198 M51.26 Of [place] S39.012D Office Visit 12/18/2016 3:00p [facility] Bethany Alvarez 21326 G43.009 Medicine - [place] R26.81 Office Visit 12/02/2016 1:20p [facility] Bethany Alvarez 51614 G43.009 Medicine - [place] M51.26 I10 Office Visit 10/28/2016 11:20a [facility] Bethnay Alvarez, 00274 G43.009 Medicine - [address] M.D. I10 Office Visit 10/09/2016 11:20a [facility] Internal Cory Alvarez, 27616 G43.009 Medicine - [address] M.D. Office Visit 09/10/2016 8:40a [facility] Internal Betty Escobedo, N.P. 08010 M54.6 Medicine - [place] Office Visit 09/04/2016 8:20a [facility] Internal Cory Alvarez, 51694 G43.009 Medicine - [address] M.D. I10 J44.9 F17.210 Z23 Office Visit 08/19/2016 10:40a [facility] Internal Cory Alvarez, 26272 G43.009 Medicine - [address] M.D. J06.9 Office Visit 07/14/2016 1:40p [facility] Internal Medicine Sherry Griffin, 46430 J01.90 - [place] M.D. Office Visit 07/11/2016 11:40a [facility] Internal Medicine Cory Alvarez, 73163 M54.12 - [address] M.D. M51.26 J01.90 Office Visit 05/20/2016 2:40p [facility] Internal Cory Alvarez, 72965 M54.12 Medicine - [address] M.D. M51.26 Office Visit 05/12/2016 3:45p Neurosurgery Services Grady Ryan, 15804 M51.26 Of [facility] Ranjit Office Visit 04/16/2016 11:30a [facility], 79909 L72.3 [employer] M.D. Office Visit 03/21/2016 11:40a [facility] [facility] - Cory Alvarez, [address] M.D. K21.9 M25.512 L72.3 Office Visit 03/12/2016 1:45p [facility]surgery Services Of Kitty Moreno PA-C 25339 M54.5 [facility] M79.605 Office Visit 02/22/2016 11:40a [facility] Internal Cory Alvarez M.D. 12254 M54.2 Medicine - [address] M25.512 M51.16 I10 J44.9 Office Visit 11/14/2015 2:40p [facility] Internal Cory Alvarez M.D. 59572 E87.1 Medicine - [address] M51.16 J44.9 I10 Office Visit 10/19/2015 2:30p [facility] Of Isha Rojas M.D. 57340 M16.0 C.M.APromise M25.551 M25.552 Office Visit 10/15/2015 1:40p [facility] Internal Medicine - Jung Avelar, HYPERBARIC TECH [address] M10.9 J44.9 Z12.11 M51.16 Z00.00 Office Visit 09/27/2015 1:00p [facility] Internal Cory Alvarez, 23820 M47.812 Medicine - [address] MedinaDPromise M51.16 M16.11 G56.01 I10 M10.9 Z12.5 J44.9 Office Visit 01/12/2015 1:20p Neurosurgery Services Isidro Chaudhry, 73019 M47.812 [facility] [place] M47.816 M16.11 Office Visit 12/28/2014 3:20p Orthopedic Services Aurelio Hernandez M.D. 23124 G62.9 Of [facility] Office Visit 11/15/2014 3:40p [facility] Services Aurelio Hernandez M.D. 75993 719.47 [facility] Office Visit 08/17/2014 2:00p Orthopedic Services Neha Cunha, 48018 354.0 Of [facility].[place] Office Visit 07/17/2014 10:30a Orthopedic Services Tej Camargo M.D. 44845 715.15 Of C.M.APromise 715.35 Office Visit 05/19/2014 3:00p [facility]surgery Services Isidro Chaudhry, 76354 715.15 Of [place] 721.0 721.3 715.35 Plan of Care Future Appointment(s):04/09/2017 1:30 pm - Buck Gomez PA-C at [facility]04/09/2017 1:30 pm - MATTHEW Garza at [facility]04/09/2017 1:30 pm - Isha Rojas M.D. at [facility]04/22/2017 11:30 am - Isha Rojas M.D. at [facility]06/11/2017 1:45 pm - Cristy Hatfield M.D. at [facility]03/31/2017 - Cory Alvarez M.D.Z01.818 Encounter for other preprocedural examinationNew Medication:WalkerRaised Toilet SeatComments:Patient asymptomatic from cardiac and pulmonary standpoint. IsCleared for above proposed surgery with customary perioperative monitoring.Albuterol nebulizer treatment starting 1h before procedure andthen 6hourly.Will take Verapamil and omeprazole on the day of surgery with sips of water but can resume all meds post op. Should not take aspirin and or OTC medications like ibuprofen for 1 week priorto surgery.Quit smoking 2 weeks before surgery, since it will adversely affect the outcome of surgery and anesthesia. Will start Nicoderm patch and Nicorette gums.
--- OUTSIDE RECORDS SUMMARY | 2017-04-09 10:32 | XMS REPORT ---
:1960 External Reference #:[id number] Author Organization [facility] Address [address] [address] Phone [phone] Care Team Providers Name Role Phone Cory Alvarez MD Primary Care Physician Unavailable Payers Type Date Identification Numbers Payment Provider Subscriber Medicaid Effective: 2014 Policy Number: [id number] Medicaid Silvino Humphries Expires: 2015 Group Name: 1 1 [address] PayID: [id number] [place] [address] Commercial Expires: 2014 Policy Number: Total Care/Cristina FHP Silvino Humphries [id number] PayID: [id number] [address] [address] [place] [address] Commercial Effective: 2015 Policy Number: Total Care/Cristina MNG Silvino Humphries [id number] [facility] Group Name: [id number] [address] [address] PayID: [id number] [place] [address] Problems Date Description Provider Status Onset: 06/22/2014 Neck pain Kacie Tineo M.D. Active Onset: 01/12/2015 Lumbar spondylosis Isidro Chaudhry M.D. Active Onset: 09/27/2015 Carpal tunnel syndrome of right Cory Alvarez M.D. Active wrist Onset: 09/27/2015 Essential hypertension Cory Alvarez M.D. Active Onset: 09/27/2015 Gout Cory Alvarez M.D. 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 ps by mouth Namrataman, every M.D. night as directed Acetaminophen 10/28 Active Tablets 500mg 180ta 2 tab 3 G43.009 Cory Extra Strength bs times Pachikara daily as , M.D. needed Verapamil HCL ER 10/28 Active Caps ER 240mg 30cap Take One G43.009 24HR s Capsule By Kim Hoffman M.D. Every Day Ventolin HFA 04/23 Active Aerosol 108(90Bas 16gm 2 puffs by e) mouth four Pachikara mcg/Act times a , M.DPromise day as needed Uloric 04/11 Active Tablets 40mg 90tab 1 by mouth Cory s every day Ranjit Alvarez Omeprazole 03/21 [...] Active Tablets 20mg 30tab Take One I10 / s Tablet By Kim Hoffman M.D. Every Day Verapamil HCL ER 10/09 Hx Caps ER 120mg 30cap 1 by mouth G43.009 24HR s every day Kim - Ranjit 10/28 Amitriptyline HCL 09/04 Hx Tablets 25mg 30tab 1 by mouth G43.009 [place] s every Pachikara - night at MPromiseDPromise 10/09 bedtime Sumatriptan 08/19 Hx Tablets 100mg 9tabs use at G43.009 [place] Succinate onset of Pachika - head MPromiseDPromise 12/02 ache,august repeat after 2h as needed Metoprolol 08/19 Hx Tablets 25mg 60tab 1 by mouth G43.009 Cory Tartrate s twice a Kim - Ranjit sanford 10/09 Amoxicillin/Clavu 08/19 Hx Tablets 875-125mg 20tab 1 by mouth J06.9 Cory lanate s twice a Kim - day MedinaDPromise 09/04 Prednisone 08/19 Hx Tablets 10mg 30tab 5tabx J06.9 Croy s 2days,4 Pachikara - [id number] , M.D. 09/04 [id number] /2017 ,[id number] s,1tabx . Loratadine 07/14 Hx Tablets 10mg 14tab 1 by mouth J01.90 Sherry s every day Gaby, - as needed M.D. 02/12 for nasal congestion Ativan 03/12 Hx Tablets 2mg 2tabs take one M54.5 tablet by Kim - mouth 30 , M.D. before mri, may repeat at the time of mri. Atenolol 11/20 Hx Tablets 50mg 30tab 1 by mouth Cory s every day Kim - Ranjit 09/04 Proair HFA 11/12 Hx Aerosol 108(90Bas 8.5un 2 puffs by e) its mouth Kim - mcg/Act every 4 , M.D. 18 hours needed Vistaril 10/16 Hx Capsules 50mg 4caps 2 tabs po Jung 30 minutes Sami, - before CT, SUPPORT WORKER 11/13 in 30 minutes in ineffectiv e Wrist Brace 09/26 Hx Misc 1unit apply as G56.01 Cory Deluxe/Right/Smal s directed Kim l/Medium - , M.DPromise 03/26 Hydrochlorothiazi Hx Tablets 12.5mg 90tab 1 by mouth I10 [place] de / s every day Kim (pt not , M.D. taking) Atenolol Hx Tablets 25mg 1 qd I10 Unknown /0000 - 11/20 Aspirin - Hx Tablets 81mg 1 by mouth Unknown [...] Ipratropium Hx Solution 0.06% 2 sprays Unknown [place] /0000 in each - nostril 09/26- times/day for relief of cold symptoms (limit 4 days) Ketoconazole Hx Cream 2% apply thin Unknown /0000 film twice - daily 09/26 Proair HFA Hx Aerosol 108(90Bas 2 puffs by J44.9 Unknown /0000 e) mouth - mcg/Act every 4 08/09 hours needed Prednisone 00 Hx Tablets 10mg 2 qd Unknown /0000 - 09/26 Uloric Hx Tablets 40mg 90tab 1 by mouth M10.9 [place] /0000 s every day Kim Herndon M.D. 02/25 Amlodipine Hx Tablets 5mg 30tab Take One I10 Cory Besylate /0000 s Tablet By Kim Hoffman M.D. 10/28 Immunizations CPT Code Status Date Vaccine Reaction Lot # [id number] Given 09/04/2016 Pneumonia Vaccine no immediate reaction, pt [id number] tolerated injection - pw Vital Signs Date Vital Result Comment 03/27/2017 Height 69 inches 5'9" Weight 150.00 [...] Test Date Test Result H/L Range Note Laboratory test finding 02/03/2017 TSH (Thyroid Stim 0.92 mcIU/mL 0.34- 5.60 Horm) CBC Auto Diff 02/03/2017 White Blood Count [...] 0-2 Nucleated Red Blood Cells % 0.1 Comp Metabolic Panel 02/03/2017 Sodium 133 mmol/L [...] Egfr Non- 93.2 >60 Egfr 119.9 >60 1 Vitamin B12 And Folate Serum 01/06/2017 Vitamin B12 346 pg/mL 180-914 2 Folic Acid (Folate) 15.62 ng/mL >3.99 Rapid Influenza A & B 06/02/2016 Influenza A Molecular NEGATIVE Negative 3 Molecular Influenza B Molecular NEGATIVE Negative Basic [...] Egfr Non- 93.6 >60 Egfr 120.4 >60 4 Laboratory test finding 11/02/2015 PSA Screening 1.322 ng/mL 0-4.000 5 Lipid Profile (Trig/Chol/HDL) 11/02/2015 Triglycerides 58 mg/dL 6 Cholesterol 173 mg/dL 7 HDL Cholesterol 67.3 mg/dL 8 LDL Cholesterol 94 mg/dL 9 Comp Metabolic Panel 11/02/2015 Sodium 129 mmol/L [...] Egfr Non- 109.8 >60 Egfr 141.2 >60 10 Laboratory test finding 11/02/2015 Uric Acid 4.4 mg/dL 4.4-7.6 Stool For Blood 10/26/2015 Miscellaneous Lab negative X 3 1 Because ethnic data is not always readily [...] 15-29 5 Kidney failure <15 (or dialysis) 2 Normal Range 180 to 914 Indeterminate Range 145 to 180 Deficient Range <145 3 Pellet Machine Operator: [id number] BLAKE BOYER 4 Because ethnic data is not always readily [...] 15-29 5 Kidney failure <15 (or dialysis) 5 Serum levels of PSA measured using the Katelynn eZono DXI Hybritech immunoassay should not be interpreted as absolute evidence of the presence or absence of disease. The PSA value should be used in conjunction with other pertinent clinical diagnostic procedures. The values obtained with different assay methods or kits cannot be used interchangeably. 6 Desirable <150 Borderline high 150-199 High 200-499 Very High >500 7 Desirable <200 Borderline high 200-239 High >239 8 Low <40 Desirable: 40-60 High: >60 9 Desirable: <100 mg/dL Near Optimal: 100-129 mg/dL Borderline High: 130-159 mg/dL High: 160-189 mg/dL Very High: >189 mg/dL 10 Because ethnic data is not always readily [...] 15-29 5 Kidney failure <15 (or dialysis) Procedures Date CPT Code Description Status 02/03/2017 82695 Nerve Conduction 07-08 Studies Completed 02/03/2017 42196 Needle Electromyography Each Extremity W/Related Completed Paraspinal Areas 05/06/2016 68453 Excision Benign Lesion Incl Diameter 1.1 - 2.0 CM Completed Scalp,Neck,Hand 05/06/2016 53437 Excise Benign Lesion 2.1-3CM Trunk/Arm/Leg Completed 11/20/2015 33593 Plethysmography Determination Lung Volumes & Per Completed Airway Resist 11/20/2015 01353 Pulmonary Function><Bronchodil Completed 06/22/2014 02712 Nerve Conduction 09-10 Studies Completed 06/22/2014 74555 Needle Electromyography Complete, Five Or More Muscles Completed Studied Encounters Type Date Location Provider CPT E/M Dx Office Visit 02/23/2017 [facility] Services Isha Rojas M.D. 16504 M25.551 10:45a [facility] M16.11 Office Visit 02/12/2017 1:00p [facility] Internal Cory Alvarez, 49819 M25.551 Medicine - [address] M.D. M51.26 J44.9 I10 Office Visit 02/05/2017 10:15a [facility] Cristy CardosoPromise Alysia, 63298 G44.52 Services Of Steamfitter Supervisor M.D. Office Visit 01/08/2017 11:00a [facility] Internal Medicine Cory Alvarez, 52340 M51.26 - [address] M.D. G56.00 G62.9 Office Visit 12/19/2016 9:50a [facility]surgery Services Grady [place], 83991 M51.26 Of [employer] Super[employer] Janae.Ayaan S39.012D Office Visit 12/18/2016 3:00p [facility] Internal Cory Alvarez, 23147 G43.009 Medicine - [address] M.D. R26.81 Office Visit 12/02/2016 1:20p [facility] Internal Cory Alvarez, 88224 G43.009 Medicine - [address] M.D. M51.26 I10 Office Visit 10/28/2016 11:20a [facility] Internal Cory Alvarez, 10005 G43.009 Medicine - [address] M.D. I10 Office Visit 10/09/2016 11:20a [facility] Internal Cory Alvarez, 12813 G43.009 Medicine - [address] M.D. Office Visit 09/10/2016 8:40a [facility] Internal Betty Escobedo, N.P. 23849 M54.6 Medicine - [place] Office Visit 09/04/2016 8:20a [facility] Internal Cory Alvarez, 20214 G43.009 Medicine - [address] M.D. I10 J44.9 F17.210 Z23 Office Visit 08/19/2016 10:40a [facility] Internal Cory Alvarez, 10822 G43.009 Medicine - [address] M.D. J06.9 Office Visit 07/14/2016 1:40p [facility] Internal Medicine Sherry Griffin, 81779 J01.90 - [place] M.D. Office Visit 07/11/2016 11:40a [facility] Internal Medicine Cory Alvarez, 42155 M54.12 - [address] M.D. M51.26 J01.90 Office Visit 05/20/2016 2:40p [facility] Internal Cory Alvarez, 37329 M54.12 Medicine - [address] Ranjit M51.26 Office Visit 05/12/2016 3:45p Neurosurgery Services Grady Ryan, 51162 M51.26 Of [place] Office Visit 04/16/2016 11:30a [facility] Dem[facility]rio[facility] Lara, 01730 L72.3 [facility] M.DPromise Office Visit 03/21/2016 11:40a [facility] Internal Medicine Cory Alvarez, [address] Ranjit K21.9 M25.512 L72.3 Office Visit 03/12/2016 1:45p [facility] Of Kitty Moreno PA-C 02728 M54.5 [facility] M79.605 Office Visit 02/22/2016 11:40a [facility] Internal Cory Alvarez M.D. 65739 M54.2 Medicine - [address] M25.512 M51.16 I10 J44.9 Office Visit 11/14/2015 2:40p [facility] Internal Cory Alvarez M.D. 63851 E87.1 Medicine - [address] M51.16 J44.9 I10 Office Visit 10/19/2015 2:30p [facility] Of Isha Rojas M.D. 91021 M16.0 [facility] M25.551 M25.552 Office Visit 10/15/2015 1:40p [facility] Internal Medicine - Jung Avelar, CARTER [address] M10.9 J44.9 Z12.11 M51.16 Z00.00 Office Visit 09/27/2015 1:00p [facility] Internal Cory Alvarez, 79703 M47.812 Medicine - [address] Ranjit M51.16 M16.11 G56.01 I10 M10.9 Z12.5 J44.9 Office Visit 01/12/2015 1:20p Neurosurgery Services Isidro Chaudhry, 24270 M47.812 Of [place] M47.816 M16.11 Office Visit 12/28/2014 3:20p [facility]opedic Services Aurelio Hernandez M.D. 87205 G62.9 Of [facility]. Office Visit 11/15/2014 3:40p [facility] Services Aurelio Hernandez M.D. 91324 719.47 Of C.M.APromise Office Visit 08/17/2014 2:00p Orthopedic Services Neha Cunha, 02679 354.0 Of C.M.[place] Office Visit 07/17/2014 10:30a [facility]opedic Services Tej Camargo M.D. 15759 715.15 Of C.M.Jonathon 715.35 Office Visit 05/19/2014 3:00p [facility]surgery Services Isidro Chaudhry, 48036 715.15 Of [facility] Ranjit 721.0 721.3 715.35 Plan of Care Future Appointment(s):03/31/2017 1:00 pm - Cory Alvarez M.D. at [facility] Internal Medicine - [address]04/09/2017 1:30 pm - Isha Rojas M.D. at [facility]04/22/2017 11:30 am - Isha Rojas M.D. at [facility]06/11/2017 1:45 pm - Cristy Hatfield M.D. at [facility]03/27/2017 - Isha Rojas M.D.M25.551 Pain in right hipFollow up:Follow up: 2 weeks after ouvrnjmH15.11 Unilateral primary osteoarthritis, right hip
[2017-04-09] MEDS: Buffered Lidocaine 0.9% SYRIN* 5 ML/SYR SYRINGE INTRADERM ONE (11:02)
[2017-04-09] MEDS ORDERED: fentaNYL* 50 MCG/ML 2 ML VIAL (100 MCG VIAL) ONE ×3 (12:09→17:19)
[2017-04-09] MEDS ORDERED: Midazolam* 1 MG/ML 10 ML VIAL (10 MG) ONE (12:09)
[2017-04-09] MEDS ORDERED: KETAMINE HCL* 50 MG/ML 10 ML VIAL ONE (12:09)
[2017-04-09] MEDS ORDERED: Atracurium* 10 MG/ML 10 ML VIAL ONE (12:50)
[2017-04-09] MEDS ORDERED: Morphine INJ* 10 MG/ML 1 ML CARPUJECT ONE (14:49)
[2017-04-09] MEDS ORDERED: Bupivacaine 0.25% SDV* 30 ML ONE (15:44)
[2017-04-09] MEDS ORDERED: Phenylephrine IV* 40 MCG/ML 10 ML SYRINGE ONE (16:30)
[2017-04-09] MEDS ORDERED: EPHEDrine (Pressors)* 50 MG/ML VIAL ONE (16:30)
[2017-04-09] MEDS ORDERED: Glycopyrrolate IV* 0.2 MG/ML 1 ML VIAL ONE (16:30)
[2017-04-09] MEDS ORDERED: Neostigmine Methylsulfate* 2 MG/2 ML SYRINGE ONE (16:30)
[2017-04-09] MEDS ORDERED: Ondansetron INJ* 2 MG/ML VIAL ONE (16:30)
[2017-04-09] MEDS ORDERED: Propofol* 10 MG/ML 20 ML BTL IV PUSH ONE ×2 (16:30→16:42)
[2017-04-09] MEDS ORDERED: Lidocaine 2% PF * 5 ML VIAL ONE (16:30)
[2017-04-09] MEDS ORDERED: Phenylephrine INJ* 10 MG/ML 1 ML VIAL (10 MG) ONE (16:30)
[2017-04-09] MEDS ORDERED: Dexamethasone IV* 4 MG/ML 1 ML (4 MG) ONE (16:30)
[2017-04-09] MEDS ORDERED: Labetalol IV* 5 MG/ML 20 ML VIAL ONE (16:37)
[2017-04-09] MEDS ORDERED: Magnesium Hydroxide LIQ* 30 ML UDC PO PRN (17:00)
[2017-04-09] MEDS ORDERED: Ondansetron INJ* 2 MG/ML VIAL IV PRN (17:00)
[2017-04-09] MEDS ORDERED: diPHENhydraMINE IV* 50 MG/ML 1 ml VIAL (BENADRYL) IV PRN (17:00)
[2017-04-09] MEDS ORDERED: Bisacodyl SUPP* 10 MG SUPP PR PRN (17:00)
[2017-04-09] MEDS ORDERED: Acetaminophen TAB* 325 MG PO PRN (17:00)
[2017-04-09] MEDS ORDERED: oxyCODONE TAB* 5 MG TAB PO PRN (17:00)
[2017-04-09] MEDS ORDERED: oxyCODONE/Acetamin 5/325 MG* TAB PO PRN (17:00)
[2017-04-09] MEDS ORDERED: Cyclobenzaprine TAB* 10 MG PO PRN (17:06)
[2017-04-09] MEDS ORDERED: Morphine INJ* 4 MG/ML 1 ML CARPUJECT ONE ×2 (17:19→17:29)
[2017-04-09] MEDS: Morphine INJ* 2 MG/ML 1 ML CARPUJECT IV PRN ×4 (17:21→18:03)
[2017-04-09] MEDS: fentaNYL* 50 MCG/ML 2 ML VIAL (100 MCG VIAL) IV PRN ×4 (17:22→18:04)
[2017-04-09] MEDS ORDERED: oxyCODONE/Acetamin 5/325 MG* TAB ONE (17:29)
[2017-04-09] MEDS: oxyCODONE/Acetamin 5/325 MG* TAB PO PRN ×2 (17:50→22:30)
--- NOTE | 2017-04-09 18:51 | RAD ---
Indication: Postop RIGHT hip replacement. Comparison: February 23, 2017 Technique: Low AP pelvis and AP and crosstable lateral views RIGHT hip. Report: Normally located RIGHT total hip prosthesis. Negative for periprosthetic fracture. Surrounding soft tissue edema and subcutaneous emphysema. The LEFT hip is remarkable for mild osteophytic lipping and axial joint space narrowing. Bilateral enthesopathy at the lesser trochanters. IMPRESSION: Unremarkable immediate postop appearance following RIGHT total hip replacement.
--- NOTE | 2017-04-09 19:07 | RAD ---
Indication: RIGHT total hip replacement. Comparison: February 23, 2017 Technique: Crosstable LEFT decubitus AP view of the low pelvis and proximal femurs. Report: Test fit/reamer RIGHT femoral component in place. RIGHT acetabular component in place. No periprosthetic fracture evident. IMPRESSION: Procedural control film.
[2017-04-09] MEDS ORDERED: Warfarin TAB(*) 6 MG PO ONE (20:00)
[2017-04-09] MEDS: Docusate CAP* 100 MG PO SCH (20:37)
[2017-04-09] MEDS: Morphine INJ* 2 MG/ML 1 ML SYRINGE (TWO MG - NEW SYRINGE VERSION) IV PRN (20:39)
[2017-04-09] MEDS: Magnesium Hydroxide LIQ* 30 ML UDC PO SCH (20:53)
--- NOTE | 2017-04-09 22:19 | CONS ---
CC: Dr. Rojas; Dr. Alvarez * CONSULTATION REPORT: DATE OF CONSULT: PRIMARY CARE PROVIDER: Dr. Alvarez. REQUESTING PROVIDER: Dr. Rojas. REASON FOR CONSULT: Medical management of a patient, status post right hip replacement. CHIEF COMPLAINT: None at this point. The patient was just brought in from the OR. He is very sedated. HISTORY OF PRESENT ILLNESS: Mr. Humphries is a 56-year-old male with history of right hip osteoarthritis, who is status post right hip replacement performed by Dr. Rojas today. The patient was just brought from the OR and he is sedated and basically nonverbal. Most of the information in this history and physical was obtained from medical records. PAST MEDICAL HISTORY: 1. History of COPD, not on oxygen. 2. History of hypertension. 3. Gastroesophageal reflux disease. 4. History of chronic neck and lower back pain. 5. History of gout. MEDICATIONS: The patient's medications at home include: 1. Oxycodone 10 mg on a p.r.n. basis. 2. Zonisamide 25 mg, the patient takes total of 100 mg at night. 3. Acetaminophen on a p.r.n. basis. 4. Verapamil ER 240 mg daily. 5. Albuterol inhaler on a p.r.n. basis. 6. Uloric 40 mg daily. 7. Omeprazole 40 mg daily. 8. Allopurinol 100 mg daily. 9. Symbicort 160/4.5 two puffs twice a day. 10. Lisinopril 20 mg daily. ALLERGIES: ASPIRIN, cause nose bleeds. FAMILY HISTORY: Mother with history of heart disease and hypertension. SOCIAL HISTORY: The patient has a history of smoking half a pack a day. His surrogate is his . He is currently unemployed. There is rare use of alcohol according to the medical records. REVIEW OF SYSTEMS: Unobtainable from the patient, who is sedated and right after general anesthesia and postoperative unit. PHYSICAL EXAM: Blood pressure of 152/96, heart rate of 84 and regular, respiratory rate of 13, oxygen saturation 92% on 5 L with simple OxyMask. Temperature of 96.8. General Appearance: The patient is a pleasant 56-year-old male who is in no acute distress. The patient is basically nonverbal due to just coming out of sedation. The patient responds to commands appropriately and follows commands. HEENT: Head: Atraumatic, normocephalic. Eyes: Pupils are equal, round, and reactive to light and accommodation. Oropharynx clear. Mucosa moist. Neck: Supple. No JVD, no bruits bilaterally. Cardiovascular: Regular rate and rhythm. No murmur. Respiratory: Clear to auscultation bilaterally. Abdomen: Soft and nontender. Bowel sounds present in all 4 quadrants. Extremities: There is no edema. Pulses are +2 bilaterally. No clubbing or cyanosis. On evaluation of the skin, the patient has postoperative dressing applied to the right hip. Those were not removed. Neuro evaluation: The patient withdraws to pain in all 4 extremities. His face is symmetrical. He is nonverbal and somewhat sedated and further neuro evaluation was deferred. LABORATORY DATA: Not available. ASSESSMENT AND PLAN: 1. In regards to the patient's postoperative management for hypertension, he can be restarted on his home medications in the morning. 2. For his history of gout, his Uloric can be continued in the morning. 3. In regards to the patient's chronic obstructive pulmonary disease, does not appear to be in exacerbation by evaluation. His inhaler should be continued throughout his hospital stay. 4. In regards to patient being on zonisamide. At this point, the patient has no mention of seizures in his past medical history. This history is of family history of seizures. On his to-date medicine reconciliation, he does not have that medication is listed as his home medication. The patient himself was unable to confirm that at this point. At this point, I will recommend to continue his outpatient medications and if he is currently not on Zonegran, it probably was a typo in prior history and physical. 5. For DVT prophylaxis, the patient is being treated with enoxaparin by primary service. Thank you very much for allowing me to see your patient in consultation. We will follow with the patient on a p.r.n. basis. [id number]/[facility] #: [id number] MTDD
[2017-04-09] MEDS: ceFAZolin 1 GM VIAL(*) 1 GM in NS 0.9% 50 ML* 50 ML IVPB SCH (22:26)
[2017-04-10] MEDS: oxyCODONE/Acetamin 5/325 MG* TAB PO PRN ×6 (02:36→23:17)
[2017-04-10] MEDS: Morphine INJ* 2 MG/ML 1 ML SYRINGE (TWO MG - NEW SYRINGE VERSION) IV PRN (04:56)
[2017-04-10] MEDS: ceFAZolin 1 GM VIAL(*) 1 GM in NS 0.9% 50 ML* 50 ML IVPB SCH ×2 (06:29→14:56)
[2017-04-10 06:36] LABS: Hematocrit 33 % (42-52); Hemoglobin 11.3 g/dl (14.0-18.0); Mean Platelet Volume 7 um3 (7.4-10.4); Platelet Count 210 10^3/ul (150-450)
[2017-04-10 06:43] LABS: INR 1.09 (0.77-1.02)
[2017-04-10 06:49] LABS: EGFR Non-African American 111.1 (>60)
--- NOTE | 2017-04-10 07:45 | PN ---
Progress Note - Progress Note Date of Service: 04/10/17 SOAP: Subjective: Pt. is alert, pain is controlled. Objective: RLE - thigh soft, dressing c/d/i. distally +df/pf, full sens lt, 2+dp pulse. Vital Signs: Temp Pulse Resp BP Pulse Ox 97.9 F 83 16 126/83 99 04/10/17 04:21 04/10/17 04:21 04/10/17 06:30 04/10/17 04:21 04/10/17 04:21 Laboratory Results - last 24 hr 04/10/17 04/10/17 04/10/17 05:57 05:57 05:57 Hgb 11.3 L Hct 33 L Plt Count 210 MPV 7 L INR (Anticoag Therapy) 1.09 H Sodium 128 L Potassium 4.3 Chloride 96 L Carbon Dioxide 25 Anion Gap 7 BUN 8 Creatinine 0.73 Est GFR ( Amer) 142.9 Est GFR (Non-Af Amer) 111.1 BUN/Creatinine Ratio 11.0 Glucose 135 H Calcium 9.0 Assessment: 56 yo M pod 1 s/p RTHA Plan: wbat rle post hip precautions pt/ot lovenox today, 6 mg coumadin tonight plan d/c to home 04/11
[2017-04-10] MEDS: Magnesium Hydroxide LIQ* 30 ML UDC PO SCH ×2 (10:40→20:28)
[2017-04-10] MEDS: Enoxaparin(*) 30 MG/0.3 ML SYR SUBCUT SCH (10:40)
[2017-04-10] MEDS: Vitamin THERAPEUTIC TAB PO SCH (10:40)
[2017-04-10] MEDS: Docusate CAP* 100 MG PO SCH ×2 (10:40→20:28)
--- NOTE | 2017-04-10 12:44 | OP ---
OPERATIVE REPORT: DATE OF OPERATION: 04/09/17 DATE OF : 60 SURGEON: Isha Rojas MD GUI DEVELOPER: MATTHEW Frank Ms. did help throughout the procedure with preparation of the leg, wound retraction, manipul ation of the hip, and wound closure. ANESTHESIOLOGIST: Lucian Felix MD ANESTHESIA: General. PRE-OP DIAGNOSES: Severe end-stage osteoarthritis of the right hip, rheumatoid arthritis. POST-OP DIAGNOSES: Severe end-stage osteoarthritis of the right hip, rheumatoid arthritis. OPERATIVE PROCEDURE: Right total hip arthroplasty. INDICATIONS: Mr. Humphries is a 56-year-old gentleman with years of rheumatoid arthritis. He has osteoa rthritis in several joints. He developed increasingly severe right hip pain over the last 3 years. Radiographs showed extensive arthritic changes with [id number] contact and acetabular bone loss, de formation, and approaching protrusio due to chronic wear. The patient failed conservative treatment and I advised the right total arthroplasty to preserve remaining acetabular bone stock. He elected t o undergo right total hip arthroplasty due to continued pain and decreased quality of life. Informed consent was obtained from the patient. He understood the risks of surgery included but were not sands ited to bleeding, infection, damage to nearby structures, continued pain, need for further surgery, i ntraoperative fracture, nerve palsy, hardware failure or loosening, dislocation, leg length discrepan cy, stroke, heart attack, blood clot, and . He wished to proceed. COMPLICATIONS: None. ESTIMATED BLOOD LOSS: Less than 300 cc. SPECIMEN: Femoral head and acetabular reaming sent to Pathology. HARDWARE USED: This is uncemented Naylor total hip hardware. For the acetabulum, a Trident Tritani um hemispherical shell 56E, two 20-mm 6.5 screws were used. For the polyethylene, a 36E Trident X3 1 0-degree polyethylene insert. For the stem, an Accolade TMZF size 3 with a 132-degree neck and for t he head, a Biolox delta ceramic V40 femoral head 36, +2.5. INTRAOPERATIVE FINDINGS: Intraoperatively, the patient was noted to have extreme deformation of the femoral head and acetabulum. Complete loss of cartilage. Extensive osteophyte formation and loss of bone in the acetabular region. This bone was extremely sclerotic with medial wall that was quite thi n. Extensive osteophyte formation formed complete rim around the acetabulum. DESCRIPTION OF PROCEDURE: Mr. Humphries was identified in the preanesthesia unit. His right lower extre mity was marked as the correct operative side. Informed consent was signed and placed in the chart. The patient was taken to the operating room and placed under general anesthesia. A Fine catheter w as placed. The patient was placed in the left lateral decubitus position on the peg board. All bony prominences were well padded. Right lower extremity was prepped and draped in the usual sterile fas hion. Preop time-out was made to correctly identify the patient's side and site. Appropriate periop erative antibiotics were given within 1 hour of incision. A 12-cm posterior hip incision was made with a 10 blade and carried down to the extensor mechanism. New 10 blade was used to make a standard lateral fascial incision in line with the skin incision. A Charnley retractor was placed. The piriformis and conjoint tendons were identified. This was elevat ed off the posterolateral femur with electrocautery and tagged with #5 Ethibonds. Next, the electroc autery was used to make a standard posterolateral capsular flap and this was also tagged with #5 Ethi bonds. The hip was carefully dislocated. Femoral head had moved medially with near protrusio due to chronic wear. Dislocation was difficult because of this. Femoral head was deformed with complete l oss of cartilage. Lesser troch to center of the femoral head measured 65 mm. The oscillating saw wa s used to make an appropriate femoral neck cut. The femoral head was sent to Pathology. The femur was carefully retracted anteriorly. After appropriate placement of retractors, the acetabu lum was visualized. The acetabulum was deep with a circumferential rim of thin osteophytes. This wa s due to the chronic wear. There was no remaining labrum. The acetabulum was sequentially reamed up to a size 55. The rim was touched with a 56 reamer. A 35 trial had good fit. A Trident Tritanium h emispherical shell 56E was chosen as the final cup. This was impacted into the acetabulum without di fficulty. There was excellent stability and appropriate anteversion/abduction angle. Two 20-mm scre ws were placed in the superoposterior quadrant for extra stability. A Trident X3 10-degree polyethyl candice insert 36E was chosen. This was impacted to the acetabulum without difficulty. Stability of the insert was checked and rechecked and noted to be stable. Osteotome was used to remove osteophyte along the rim of the acetabulum. Next, attention was turned to preparation of the femur. Canal finder was used to enter the proximal femur. The femur was sequentially broached up to a size 3, which had a good fit. Trial 132-degree n katie with trial 36, +0 femoral head was chosen. Lesser troch to center of the femoral head measured 6 3 mm. The hip was reduced and taken through a range of motion. The hip was stable in all positions. The hip was carefully dislocated. All trials were removed. Final implant chosen was an Accolade TM ZF size 3 with 132-degree neck angle. This was impacted into the femoral stem without difficulty. T here was excellent stability and appropriate anteversion. A 30 Biolox delta ceramic V40 femoral head, 36 +2.5 was chosen as the final implant. Lesser troch to center of the femoral head length was measured as 67 mm. The hip was reduced and taken through range of motion. The hip was stable in all positions. There was appropriate soft tissue tension and leg length. The hip was copiously irrigated with sterile saline. Previously tagged tendons were reapproximated t o the posterolateral femur through 2 trochanteric drill holes. The lateral fascial layer was closed using interrupted #1 Vicryls. The rest of the incision was clos ed in a layered fashion using 0 and 2-0 Vicryls. Skin was closed using running 3-0 Monocryl and Derm abond. Sterile Adaptic, 4x4s, and paper tape were used to cover the incision. The patient's anesthes ia was reversed without difficulty. He was taken to the PACU in stable condition. Intended weightbe aring will be weightbearing as tolerated. Intended DVT prophylaxis will be Coumadin with a Lovenox br idge. [id number]/[facility] #: [id number]
[2017-04-10] MEDS: Buffered Lidocaine 0.9% SYRIN* 5 ML/SYR SYRINGE INTRADERM ONE (15:26)
[2017-04-10] MEDS ORDERED: Warfarin TAB(*) 4 MG PO ONE (17:00)
[2017-04-11] MEDS: oxyCODONE/Acetamin 5/325 MG* TAB PO PRN ×3 (04:06→13:29)
[2017-04-11 05:58] LABS: Hematocrit 31 % (42-52); Hemoglobin 10.5 g/dl (14.0-18.0); Mean Platelet Volume 7 um3 (7.4-10.4); Platelet Count 169 10^3/ul (150-450)
[2017-04-11 06:07] LABS: INR 1.38 (0.77-1.02)
[2017-04-11] MEDS: Docusate CAP* 100 MG PO SCH (09:00)
[2017-04-11] MEDS: Vitamin THERAPEUTIC TAB PO SCH (09:00)
[2017-04-11] MEDS: Enoxaparin(*) 30 MG/0.3 ML SYR SUBCUT SCH (09:00)
[2017-04-11] MEDS: Magnesium Hydroxide LIQ* 30 ML UDC PO SCH (09:03)
--- NOTE | 2017-04-11 09:27 | PN ---
Progress Note - Progress Note Date of Service: 04/11/17 SOAP: Subjective: Pt was seen this am sitting up in bed. He states that he is been doing very well , pain is well controlled. Denies any chest pain, SOB, n/v. Objective: General: A&O, NAD RLE - Dressing changed today. Minimal dried blood present on 4x4s. Incision has no discharge, c/d/i, thigh soft. distally +df/pf, full sens lt, 2+dp pulse. Vital Signs Temp 98.3 F 04/11/17 04:05 Pulse 95 04/11/17 04:05 Resp 16 04/11/17 09:00 BP 137/86 04/11/17 04:05 Pulse Ox 99 04/11/17 04:05 Intake & Output 04/10/17 04/11/17 04/11/17 18:59 06:59 18:59 Intake Total 1720 1390 Output Total 300 925 100 Balance 1420 465 -100 Intake: IV Fluids 750 LR 750 Oral 970 1390 Output: Urine 300 925 100 Other: Estimated Void Large Small # Voids 3 Assessment: 56 yo M pod 2 s/p RTHA Plan: D/C home today wbat rle post hip precautions pt/ot INR 1.38 6 mg coumadin tonight 6 mg coumadin tomorrow
[2017-04-11 13:15] VITALS: BP 135/88
[2017-04-12] MEDS ORDERED: Scopolamine PATCH Remove* 1 NOTE MISC PATCH OFF ONE (07:17)
--- NOTE | 2017-04-15 22:29 | DS ---
DISCHARGE SUMMARY: DATE OF ADMISSION: 04/09/17 DATE OF DISCHARGE: 04/11/17 PROVIDER: Isha Rojas MD ADMITTING DIAGNOSIS: Right total hip arthroplasty. CONSULTATIONS: Physical Therapy, Occupational Therapy, and hospitalist medicine. HISTORY OF PRESENT ILLNESS: Mr. Humphries is a 56-year-old gentleman with complaints of right hip second trang to end-stage osteoarthritis. He failed conservative management and elected to proceed with a rig ht total hip arthroplasty, which occurred on 04/09/17. HOSPITAL COURSE: The patient was admitted to [facility] on 04/09/17 and underwent a right total hip arthroplasty with no complications. The patient recovered briefly in the postanesthesia c are unit and was then transferred to short stay surgical unit in stable condition. On postop day #1, the patient's H and H was 11.3 and 33. INR was 1.09 after 8 mg of Coumadin the night before. Dress ing was clean, dry, and intact. Right lower extremity was neurovascularly intact and he could demons trate dorsiflexion and plantar flexion with good strength. The patient was able to get out of bed wi physical therapy. Pain was well controlled with Percocet 5/325 mg. On postop day #2, the urinary catheter was discontinued and the patient was able to void without difficulty. Incision was found t o be benign with minimal drainage. No erythema or warmth. The patient's H and H was 10.5 and 31. I NR was 1.38 after 8 mg of Coumadin the night before. Pain was well controlled again with Percocet 5/ 325 mg. The patient was able to ambulate with the use of a rolling walker or cane. The patient's pa in was well controlled and found to be stable for discharge. Throughout the hospital course, vital s igns remained stable and the patient was afebrile. DISCHARGE CONDITION: Good. DISCHARGE MEDICATIONS: 1. Percocet 5/325 mg. 2. Colace 100 mg. 3. Warfarin 5 mg. HOME MEDICATIONS: 1. Oxycodone 10 mg 1 tablet every 12 hours as needed. 2. Zonisamide 25 mg 1 to 4 capsules q.h.s. 3. Tylenol Extra Strength. 4. Verapamil 240 mg every day. 5. Ventolin inhaler. 6. Uloric 40 mg daily. 7. Omeprazole 40 mg daily. 8. Allopurinol 100 mg daily. 9. Symbicort. 10. Lisinopril 20 mg daily. DISCHARGE INSTRUCTIONS: 1. Weightbearing as tolerated. 2. Wound care: Okay to shower. No bathing, swimming, submerging wound. Use gentle soap, pat dry. Cover with gauze, Seun wrap, or tape. Call orthopedic office for increased drainage, redness, increa sed pain or fever. Go to the ER with shortness of breath or chest pain. 3. Diet: Regular diet. Increase fluids and fiber to prevent constipation. 4. Continue to use stool softeners. Call the office if no bowel motion within 48 hours. 5. Continue hip precautions. Do not cross legs or bend greater than 90 degrees/squat. 6. Continue physical therapy and occupational therapy exercises as shown. 7. Visiting home nurses to do wound checks and blood work for INR on Mondays and . 8. Coumadin dosing 6 mg at night and 6 mg tomorrow, recheck on Thursday. 9. Pain control with Percocet 5/325, take 1 to 2 tabs every 4 to 6 hours as needed for pain. Please note that Percocet contains Tylenol. Maximum daily dose of Tylenol is 4000 mg from all sources. 10. Antibiotics required prior to any dental work. 11. Follow up with Dr. Isha Rojas within 10 to 14 days. Call for an appointment if you do not caitlinr mckenzie have one. MATTHEW LADD [id number]/[facility] #: [id number]
== END 2017-04-11 14:10 | disposition home health service (06) | DRG 301 ==
LOC: AA 10:25 → SSU 18:52
PROVIDERS: ADMIT Orthopaedic Surgery Adult Reconstructive Orthopaedic Surgery; ATTEND Orthopaedic Surgery Adult Reconstructive Orthopaedic Surgery
PROC: 0SR904A Replacement of Right Hip Joint with Ceramic on Polyethylene Synthetic Substitute, Uncemented, Open Approach (ICD-10-PCS; principal; 2017-04-09 13:00)
DX: M16.11 Unilateral primary osteoarthritis, right hip (principal); M06.9 Rheumatoid arthritis, unspecified; F17.210 Nicotine dependence, cigarettes, uncomplicated; J44.9 Chronic obstructive pulmonary disease, unspecified; I10 Essential (primary) hypertension; G89.29 Other chronic pain; M54.5 Low back pain; M54.2 Cervicalgia; K21.9 Gastro-esophageal reflux disease without esophagitis; M24.7 Protrusio acetabuli; M25.751 Osteophyte, right hip; M10.9 Gout, unspecified; Z88.8 Allergy status to other drugs, medicaments and biological substances; Z72.89 Other problems related to lifestyle; Z56.0 Unemployment, unspecified; Z82.0 Family history of epilepsy and other diseases of the nervous system; Z82.49 Family history of ischemic heart disease and other diseases of the circulatory system
CPT/HCPCS: 36415; 72170; 80048; 85014; 85018; 85049; 85610; 88304; 88311; A9270-GY; C1713; C1776; J0690; J1100; J1650; J2250; J2270; J2405; J2704; J3010

== ENCOUNTER 2018-06-09 10:34 | Day surgery (SDC) | payer OTHER ==
[~2018-06-09 10:34] MED LIST changes: +Buffered Lidocaine 1% SYRIN* 1 ML/SYRINGE INTRADERM ONE; -DiMENhydriNATE IV* 50 MG/ML VIAL IV PUSH PRN; -Famotidine IV* 10 MG/ML 2 ML (20 mg) IV ONE; +Lactated Ringers 1000 ML Bag* 1,000 ML IV SCH; -Naloxone* 0.4 MG/ML 1 ML VIAL IV PRN; -PROCHLORPERAZINE INJ 5 MG/ML 2 ML VIAL IV PRN; -Scopolamine 1.5 mg* PATCH TRANSDERM PRN
[2018-06-09] MEDS ORDERED: Lidocaine 2% MPF* 2 ML VIAL ONE (10:51)
[2018-06-09] MEDS ORDERED: Propofol* 10 MG/ML 20 ML BTL ONE (10:51)
[2018-06-09] MEDS ORDERED: Oxymetazoline 0.05% NASAL SPR* 15 ML BTL ONE (10:52)
[2018-06-09] MEDS ORDERED: Lidocaine 4% TOPICAL* 50 ML TOP.SOLN ONE (10:52)
[2018-06-09] MEDS ORDERED: Midazolam* 1 MG/ML 2 ML VIAL (2 MG) ONE (10:54)
[2018-06-09] MEDS ORDERED: fentaNYL* 50 MCG/ML 2 ML VIAL (100 MCG VIAL) ONE (10:54)
[2018-06-09] MEDS ORDERED: EPINEPHRINE 1 MG/ML 1 ML VIAL ONE (10:54)
[2018-06-09] MEDS ORDERED: Dexamethasone IV* 4 MG/ML 1 ML (4 MG) ONE (11:42)
[2018-06-09] MEDS ORDERED: Metoclopramide IV* 5 MG/ML 2 ML VIAL ONE (11:42)
[2018-06-09] MEDS ORDERED: Ondansetron INJ* 2 MG/ML VIAL ONE (11:42)
[2018-06-09] MEDS ORDERED: Rocuronium* 10 MG/ML VIAL ONE (11:45)
[2018-06-09] MEDS ORDERED: Sugammadex * 200 MG/2 ML VIAL IV PUSH ONE (12:07)
[2018-06-09] MEDS ORDERED: Acetaminophen IV 1GM/100ML * 1,000 MG/100 ML VIAL IVPB ONE (12:21)
[2018-06-09] MEDS ORDERED: DiMENhydriNATE IV* 50 MG/ML VIAL IV PUSH PRN (12:21)
[2018-06-09] MEDS ORDERED: Naloxone* 0.4 MG/ML 1 ML VIAL IV PRN (12:21)
[2018-06-09] MEDS ORDERED: hydrALAZINE IV* 20 MG/ML VIAL ONE (12:21)
[2018-06-09] MEDS ORDERED: HYDROmorphone INJ1* 1 MG/ML SYRINGE IV PRN (12:21)
[2018-06-09] MEDS ORDERED: oxyCODONE TAB* 5 MG TAB PO PRN (12:21)
[2018-06-09] MEDS ORDERED: hydrALAZINE IV* 20 MG/ML VIAL IV SLOW PU PRN (12:21)
[2018-06-09] MEDS ORDERED: HYDROmorphone INJ1* 1 MG/ML SYRINGE ONE (12:59)
[2018-06-09 13:22] VITALS: BP 139/84
--- NOTE | 2018-06-09 14:05 | OP ---
DATE OF OPERATION: 06/09/18 - [facility] DATE OF : 60 SURGEON: Kaushal Morel MD PRE-OP DIAGNOSES: Dysphonia and leukoplakia of larynx. POST-OP DIAGNOSES: Dysphonia and leukoplakia of larynx. OPERATIVE PROCEDURE: Microlaryngoscopy, suspension, and biopsy of right and left true vocal cords. 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 They elected for biopsy. DESCRIPTION OF PROCEDURE: The patient was taken to operating room, general anesthetic was given, the patient intubated. Tongue, mandible, and soft palate was elevated with a laryngoscope and larynx was suspended. Microscope was then utilized. Careful examination was carried out. There was horseshoe shaped lesion. Cup forceps biopsy was taken of the right cord, left cord, and anterior commissure region. Sent for permanent sections. Hemostasis was obtained and the patient was awaked, extubated, and sent to recovery room stable condition. Instrument and sponge counts correct. Blood loss minimal. [id number]/[facility] #: [id number] [facility]
== END 2018-06-09 13:38 | disposition home or self-care (01) ==
LOC: OR 10:34
PROVIDERS: ATTEND Otolaryngology
DX: C32.0 Malignant neoplasm of glottis (principal); R49.0 Dysphonia; J44.9 Chronic obstructive pulmonary disease, unspecified; I10 Essential (primary) hypertension; Z87.891 Personal history of nicotine dependence; K21.9 Gastro-esophageal reflux disease without esophagitis; M19.90 Unspecified osteoarthritis, unspecified site; F41.9 Anxiety disorder, unspecified
CPT/HCPCS: 88305; 88342; A9270-GY; J0360; J1100; J1170; J2250; J2405; J2704; J2765; J3010

== ENCOUNTER 2018-07-24 10:38 | Emergency (ER) | payer OTHER ==
--- OUTSIDE RECORDS SUMMARY | 2018-07-24 10:45 | XMS REPORT | Continuity of Care Document ---
:1960 External Reference #:[id number] Author Name Heber Diaz, DO Address [address] [place] [address] [place] [address] Care Team Providers Name Role Phone Jaime Be MD Care Team Information Elevator Constructor Unavailable Cory Alvarez MD Primary Care Physician Unavailable Payers Date Identification Numbers Payment Provider Subscriber Policy Number: [id number] [facility] Silvino Humphries PayID: [id number] [place] [address] Advance Directives Description No Information Available Problems Description No Information Family History Description No Information Available Social History Type Date Description Comments Sex Unknown Tobacco Use Start: Unknown Light tobacco smoker (10 or fewer cigarettes/day) Smoking Status Reviewed: 07/02/18 Light tobacco smoker (10 or fewer cigarettes/day) Allergies, Adverse Reactions, Alerts Date Description Reaction Status Severity Comments 07/02/2018 Aspirin NOSE BLEEDS Active Medications Medication Date Status Form Strength Qnty SIG Indications Ordering Provider Lisinopril 00/ Active Tablets 20mg Take One Unknown /0000 Tablet By Mouth Once Daily Tramadol HCL 00 Active Tablets 50mg Bowen, /0000 SHARIFA Barker Hydrochlorothiazide Active Tablets 25mg Chao, /0000 Staci Church Gabapentin Active Capsules 100mg Kim /Cory Muniz MD Ibuprofen 0000 Active Tablets 600mg Take One Unknown /0000 Tablet By Mouth Three Times A Day as Directed Must Take With Food Pantoprazole Sodium 00/00 Active Tablets 40mg Take One Unknown /0000 DR Tablet By Mouth Every Day Verapamil HCL ER 00/00 Active Caps ER 240mg Take One Unknown /0000 24HR Capsule By Mouth Every Day Immunizations Description No Information Available Vital Signs Date Vital Result Comment 07/02/2018 3:18pm Height 69 inches 5'9" Weight 150.00 lb BP Systolic 114 mmHg BP Diastolic 78 mmHg Heart Rate 86 /min BMI (Body Mass Index) 22.1 kg/m2 Results Description No Information Available Procedures Description No Information Available Encounters Description No Information Available Plan of Treatment No Information Available
[2018-07-24 10:54] VITALS: BP 141/01
--- NOTE | 2018-07-24 11:43 | UC ---
Throat Pain/Nasal Hardik HPI - HPI Summary HPI Summary: 2 wks of chest congestion, coughing. 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 keeps getting pushed back. up to date w/ PET scans. not smoking anymore. - History of Current Complaint Chief Complaint: UCGeneralIllness Stated Complaint: CHEST CONGESTION Time Seen by Provider: 07/24/18 11:28 Hx Obtained From: Patient Pain Intensity: 7 Pain Scale Used: 0-10 Numeric Cough: Productive Associated Signs & Symptoms: Positive: Negative. Negative: Wheezing - Allergies/Home Medications Allergies/Adverse Reactions: Allergies Allergy/AdvReac Type Severity Reaction Status Date / Time aspirin AdvReac Unknown Nose Bleed Verified 07/24/18 10:54 PMH/Surg Hx/FS Hx/Imm Hx Previously Healthy: Yes Cancer History: Other - throat ca - Surgical History Surgical History: Yes Surgery Procedure, Year, and Place: Lymph node removed from chest;[facility]. hernia repair, 20 yrs ago, [facility]. May 2016-2 cysts removed- 1 removed from [place] 1 [place] [facility] [place] - Family History Known Family History: Negative: Cardiac Disease, Hypertension - Social History Alcohol Use: Occasionally Alcohol Amount: 2-3 drinks per week Substance Use Type: Marijuana Substance Use Comment - Amount & Last Used: two days ago Smoking Status (MU): Former Smoker Type: Cigarettes Amount Used/How Often: 10 per day Have You Smoked in the Last Year: No When Did the Patient Quit Smoking/Using Tobacco: 04/14/18 - Immunization History Most Recent Influenza Vaccination: None Most Recent Tetanus Shot: 2012 Most Recent Pneumonia Vaccination: never Review of Systems All Other Systems Reviewed And Are Negative: Yes Constitutional: Negative: Fever, Chills, Fatigue Skin: Negative: Rash ENT: Positive: Sinus Congestion. Negative: Sore Throat, Ear Ache, Nasal Discharge, Sinus Pain/Tenderness Respiratory: Positive: Cough - productive x 2 wk. Negative: Shortness Of Breath , Other - wheezing Gastrointestinal: Negative: Vomiting, Diarrhea Neurological: Positive: Headache Physical Exam Triage Information Reviewed: Yes Appearance: Well-Appearing Vital Signs: Initial Vital Signs Temp 98.6 F 07/24/18 10:49 Pulse 113 07/24/18 10:49 Resp 22 07/24/18 10:49 BP 141/01 07/24/18 10:49 Pulse Ox 97 07/24/18 10:49 Vital Signs Reviewed: Yes ENT: Positive: Pharynx normal, TMs normal Neck: Positive: Supple, Nontender, No Lymphadenopathy. Negative: Nuchal Rigidity Respiratory: Positive: Lungs clear, No respiratory distress, No accessory muscle use. Negative: Crackles, Rhonchi, Stridor, Wheezing Cardiovascular Exam: Normal Neurological: Positive: Alert, Other: - CN II-XII GROSSLY INTACT Skin: Negative: Rashes Throat Pain/Nasal Course/Dx - Course Course Of Treatment: 2wk hx of productive cough in a pt w/ throat ca that is trying to get cleared for chemo/radiation. keeps getting it cancelled due to mild illness. here to obtain antibx. i explained i do not think this is bacterial and that there were risks and side effects w/ antibx. he agreed to move forward and take antibx. PET FROM 06/2018 DID NOT SHOW ANY LUNG ABNORMALITIES. exam unremarkable and no resp. distress. vitals good , recheck of pulse was 98 and bp elevated. - Differential Dx/Diagnosis Differential Diagnosis/HQI/PQRI: Influenza, Pharyngitis, URI Provider Diagnosis: Cough Discharge - Sign-Out/Discharge Documenting (check all that apply): Patient Departure All imaging exams completed and their final reports reviewed: No Studies - Discharge Plan Condition: Good Disposition: HOME Prescriptions: Azithromycin TAB* [Zithromax TAB (Z-HEATHER) 250 mg #6 tabs] 2 tab PO .TODAY, THEN 1 DAILY #1 heather Patient Education Materials: Chronic Cough (ED) Referrals: Cory Alvarez MD [Primary Care Provider] - Additional Instructions: I will prescribe you antibiotics but if they do not work please follow up with your main doctor to evaluate source of cough. Your blood pressure is elevated please review w/ your primary care. - Billing Disposition and Condition Condition: GOOD Disposition: Home
== END 2018-07-24 12:09 | disposition home or self-care (01) ==
LOC: UCEAST 10:38
DX: R05 Cough (principal); R09.81 Nasal congestion; R51 Headache; C14.0 Malignant neoplasm of pharynx, unspecified; Z88.6 Allergy status to analgesic agent; Z87.891 Personal history of nicotine dependence
CPT/HCPCS: 99212; G0463

== ENCOUNTER 2018-09-18 09:26 | Emergency (ER) | payer SELFPAY ==
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
[2018-09-18 09:42] VITALS: BP 124/78
== END 2018-09-18 10:50 | disposition home or self-care (01) ==
LOC: UCEAST 09:26
DX: M25.551 Pain in right hip (principal); M54.5 Low back pain; M25.511 Pain in right shoulder; V48.1XXA Car passenger injured in noncollision transport accident in nontraffic accident, initial encounter; Y92.410 Unspecified street and highway as the place of occurrence of the external cause; Z96.641 Presence of right artificial hip joint; C14.0 Malignant neoplasm of pharynx, unspecified; I10 Essential (primary) hypertension; Z87.891 Personal history of nicotine dependence
CPT/HCPCS: 72110